=== PATIENT | female | born 1955 ===

== ENCOUNTER 2024-04-05 14:01 | Outpatient (REF) | payer SELFPAY | END 2024-04-05 14:02 | disposition home or self-care (01) | LOC: HO.HAP 14:01 | PROVIDERS: Visit Provider Family Medicine | DX: Z13.89 Encounter for screening for other disorder (principal) ==

== ENCOUNTER 2025-02-06 15:06 | Outpatient (REF) | payer SELFPAY ==
--- OUTSIDE RECORDS SUMMARY | 2025-02-06 15:09 | XMS_ITS | Continuity of Care Document ---
Author Organization [facility] Address [address] [place] [address] [address] [place], [place] Phone [phone] Care Team Providers Care Abalone Processor Name Role Phone Ama Mc MD Care Team Information Re ceiver Unavailable JEANNE DE SOUZA M.D. Care Team Information Rec eiver Unavailable Ama Mc MD Primary Care Physician U navailable Social History Type Date Description Comments Sex Unknown
--- OUTSIDE RECORDS SUMMARY | 2025-02-06 15:09 | XMS_ITS | Patient Health Record ---
Author Organization [facility] Address [address] [place] [address] Care Team Providers Care Switchboard Mechanic Name Role Phone Douglas Baron Primary Care Provider Reason For Referral No Information Plan Of Treatment No Information Insurance Providers Payer Name Payer Address Payer Phone Subscriber Number Group Number Insured Name Patient Relationship to Insured Coverage Start Date Coverage End Date [facility] P[facility]/[place] [employer] ADM [address] [place] [address] [phone] [id number] Kelly Scanlon Self - patient is the insured
--- OUTSIDE RECORDS SUMMARY | 2025-02-06 15:10 | XMS_ITS | Referral Summary ---
Author Organization [facility] Address [address] [place] [address] Care Team Providers Care Gallery Intern Name Role Phone Ama Mc Primary Care Provider [phone] Allergies Active Allergy Reactions Criticality Noted Date Comments Lisinopril Abdominal Pain 10/31/2023 Medications amLODIPine (NORVASC) 5 mg tablet Take 5 mg by mouth daily. Active vitamin D3 (VITAMIN D3) 1,000 unit capsule Take 1 capsule by mouth daily. Active aspirin 81 mg EC tablet 81 mg. 09/06/20 18 Active calcium carbonate (CALCIUM 500 ORAL) 500 mg 2 (two) times a day. Active prednisoLONE acetate (PRED FORTE) 1% ophthalmic suspension SMARTSI Drop(s) Right Eye Twice Daily Active brimonidine (ALPHAGAN) 0.2% ophthalmic solution SMARTSI Drop(s) In Eye(s) Twice Daily Active hydrocortisone (CORTEF) 5 mg tablet Take 2 tabs in AM, 1 tab in PM, triple both doses if sick 300 tablet 3 04/30/20 24 Active hydrocortisone sodium succinate (Solu-CORTEF) 100 mg/2 mL recon soln injection Inject 100 mg in muscle in case of emergency (severe illness, if you can not tolerate hydrocortisone tablets, due to vomiting and go to ER); take with you when traveling 2 mL 2 04/30/20 24 Active syringe with needle 3 mL 23 gauge x 1 1/2 syringe To use for emergency solu-cortef injection 4 each 3 04/30/20 24 Active levothyroxine (SYNTHROID, LEVOTHROID) 75 mcg tabletIndications: Hypopituitarism (HCC),Central hypothyroidism Take 1 tablet by mouth once daily 90 tablet 10/17/19 25 Active Active Problems Problem Noted Date Diagnosed Date Osteoarthritis of knee 10/31/2023 Osteoporosis 10/31/2023 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 Primary hypercholesterolemia 10/31/2023 Allergic rhinitis 10/31/2023 Colon cancer 10/31/2023 Adenomatous polyp of colon 10/07/2023 Overview (10/31/2023): Followed by Dr Chadwick GERD (gastroesophageal reflux disease) 0 Hyperlipemia 12/07/2019 Hypothyroid 12/07/2019 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 Hypertension 10/11/2018 Shortness of breath 10/11/2018 Atypical chest pain 09/15/2018 Diastolic dysfunction 06/28/2018 Sleep apnea 06/28/2018 Retinal tear 09/09/2017 Social History Tobacco Use Types Packs/Day Years Used Date Smoking Tobacco: Former Cigarettes 1 14 0 10/11/1969 - 10/11/1983 Smokeless Tobacco: Never Comments Unknown Sex and Gender Information Value Date Recorded Sex Assigned at Female 10/26/2023 3:41 PM EST Legal Sex Female 3:37 PM EDT Gender Identity Choose not to disclose 3:41 PM EST Sexual Orientation Choose not to disclose 2023 3:41 PM EST Last Filed Vital Signs Vital Sign Reading Time Taken Comments Blood Pressure 139/67 04/30/2024 9:03 AM EDT Pulse 51 04/30/2024 9:03 AM EDT Temperature 36.4 ??C (97.6 ??F) 10/31/2023 1:56 PM ES T Respiratory Rate 18 10/31/2023 1:56 PM EST Oxygen Saturation 100% 04/30/2024 9:03 AM EDT Inhaled Oxygen Concentration - - Weight 63.1 kg (139 lb 3.2 oz) 04/30/2024 9:03 A M EDT Height 147.3 cm (4' 10 ) 04/30/2024 9:03 AM EDT Body Mass Index 29.09 04/30/2024 9:03 AM EDT Plan of Treatment Not on file Procedures * Due to [place] state law, this organization might not be sharing negative HIV tests. Procedure Name Priority Date/Time Associated Diagnosis Comments DEXA AXIAL AND TBS Routine 07/27/2024 1: 58 PM EST Postmenopausal osteoporosis from Last 3 Months or Most Recently Relevant to Health Maintenance Results * Due to [place] [employer] law, this organization might not be sharing negative HIV tests. * DXA Axial and TBS (07/27/2024 1:58 PM EST) Anatomical Region Laterality Modality Bone Densitometr y 07/29/2024 8:01 PM EST Impressions 07/29/2024 8:01 PM EST This patient has osteoporosis. Consider bone health evaluation and management by Endocrinology or Rheumatology. Thank you for the courtesy of this referral. If this radiology report contains a blank impression section, it is an incomplete radiology report. ??Please contact the interpreting radiologist or applicable radiology division as soon as possible to obtain the completed interpretation. ? Workstation ID: [id number] Narrative 07/29/2024 8:01 PM EST EXAM: ??BONE MINERAL DENSITY PROCEDURE: ??The bone mineral density (BMD) of the spine and proximal left femur was determined using an external X-ray source([employer]). SITE: ??[facility] FINDINGS: L1-L4: ??BMD 0.67gm/cm2 ?? T-Score -3.4 ?Z-score: -1.3 Femoral neck: ??BMD 0.56-2.6gm/cm2 ?? T-Score -0.9 ?Z-score: Trabecular bone score (TBS) L1-L4: ??TBS 1.25 ? Z-score: -0.1 ?(normal microarchitecture: >1.31; degraded: <1.24) The World Health Organization (WHO) defines osteoporosis (as studied in post-menopausal women) as BMD with a T value of (-)2.5 or less at any site. ??Osteopenia is defined by a T value between (-)1.1 and (-)2.4. In general, it is recommended that patients receive approximately 1000 mg of calcium daily, either from dairy products or supplements (including multiple vitamin). Patients should consider supplementing with vitamin D. Vitamin D recommendations should be discussed with Health Care Provider and measurement of vitamin D levels should be considered. Careful weight-bearing exercise is also useful in maintaining bone mass and to help protect against falls. Resulting Agency Comment [id number] Procedure Note Kevan Cassidy MD - 07/29/2024 EXAM: BONE MINERAL DENSITY PROCEDURE: The bone mineral density (BMD) of the spine and proximal leftfemur was determined using an external X-ray source([employer]). SITE: [facility] FINDINGS: L1-L4: BMD 0.67gm/cm2 T-Score -3.4 Z-score: -1.3 Femoral neck: BMD 0.56-2.6gm/cm2 T-Score -0.9 Z-score: Trabecular bone score (TBS) L1-L4: TBS 1.25 Z-score: -0.1 (normal microarchitecture:>1.31; degraded: <1.24) The World Health Organization (WHO) defines osteoporosis (as studied inpost-menopausal women) as BMD with a T value of (-)2.5 or less at anysite. Osteopenia is defined by a T value between (-)1.1 and (-)2.4. In general, it is recommended that patients receive approximately 1000 mgof calcium daily, either from dairy products or supplements (includingmultiple vitamin). Patients should consider supplementing with vitamin D.Vitamin D recommendations should be discussed with Health Care Providerand measurement of vitamin D levels should be considered. Carefulweight-bearing exercise is also useful in maintaining bone mass and tohelp protect against falls. IMPRESSION: This patient has osteoporosis. Consider bone health evaluation and management by Endocrinology orRheumatology. Thank you for the courtesy of this referral. If this radiology report contains a blank impression section, it is anincomplete radiology report. Please contact the interpreting radiologistor applicable radiology division as soon as possible to obtain thecompleted interpretation. Workstation ID: [id number] us Gil Flynn MD IMG DXA PROCEDURES Final Result from Last 3 Months or Most Recently Relevant to Health Maintenance Insurance [employer] [place] [id number] Care Teams Gallery Intern Relationship Specialty Start Date End Date Ama Mc [facility] [address] [place] [id number] PCP - General Family Medicine 09/28/18
--- OUTSIDE RECORDS SUMMARY | 2025-02-06 15:10 | XMS_ITS | Clinical Summary ---
Author Organization [facility] Address [address] [place] [address] Care Team Providers Care Supercalender Operator Helper Name Role Phone Ama Mc Primary Care Provider [phone]- [phone] Allergies Active Allergy Reactions Criticality Noted Date [...] 04/30/2024 9:03 AM EDT Plan of Treatment Health Maintenance Due Date Last Done Comments Basic Metabolic Panel 1955 Cologuard 1955 Hepatitis C Screening 1955 COVID-19 Vaccine (#1) 12/04/1959 Zoster Vaccines (1 of 2) 1973 RSV Vaccine (60+ years old a nd patients) (1 - Risk 60-74 years 1-dose series) 2014 Pneumococcal Vaccine: 50+ Years (2 of 2 - PCV) 09/22/2016 09/22/2015 Alcohol/Substance Use Screening 09/19/2024 Depression Screening and Follow-Up 09/19/2024 Health Care Proxy Review 09/19/2024 Social Drivers of Health Annual Screening 09/19/2024 Mammogram 10/22/2024 10/22/2022 FOBT / Fit Test 10/31/2024 10/31/2023 Influenza Vaccine (Season Ended) 2025 10/03/2023, 07/08/2020, 08/24/2019 DTaP,Tdap,and Td Vaccines (2 - Td or Tdap) 09/22/2025 09/22/2015 Sigmoidoscopy 10/31/2028 10/31/2023 Colon Cancer Screening 07/05/2034 Colonoscopy 07/05/2034 07/05/2024, 07/05/2024, 07/22/2023 Osteoporosis Screening Completed 07/27/2024 Hepatitis B Vaccines Aged Out No long er eligible based on patient's age to complete this topic Procedures * Due to [place] [employer] law, this organization might not be sharing negative HIV tests. Procedure Name Priority Date/Time Associated Diagnosis Comments DEXA AXIAL AND TBS Routine 07/27/2024 1: 58 PM EST Postmenopausal osteoporosis from Last 3 Months or Most Recently Relevant to Health Maintenance Results * Due to [place] [employer] law, this organization might not be sharing [...] obtain the completed interpretation. ? Workstation ID: [id number] Narrative 07/29/2024 8:01 PM EST EXAM: ??BONE MINERAL DENSITY PROCEDURE: ??The bone mineral density (BMD) of the spine and proximal left femur was determined using an external X-ray source([employer]). SITE: ??[facility] FINDINGS: L1-L4: ??BMD 0.67gm/cm2 ?? T-Score -3.4 [...] help protect against falls. Resulting Agency Comment [id number] Procedure Note Kevan Cassidy MD - 07/29/2024 EXAM: BONE MINERAL DENSITY PROCEDURE: The bone mineral density (BMD) of the spine and proximal leftfemur was determined using an external X-ray source([employer]). SITE: [facility] FINDINGS: L1-L4: BMD 0.67gm/cm2 T-Score -3.4 Z-score: [...] possible to obtain thecompleted interpretation. Workstation ID: [id number] [facility] Rina RANGEL IMG DXA PROCEDURES Final Result from Last 3 Months or Most Recently Relevant to Health Maintenance Insurance [facility] [employer] [place] [id number] Care Teams Supercalender Operator Helper Relationship Specialty Start Date End Date Ama Mc [facility] [address] [place] [address] PCP - General Family Medicine 09/28/18
--- OUTSIDE RECORDS SUMMARY | 2025-02-06 15:10 | XMS_ITS | Encounter Summary ---
Author Organization [facility] Address [address] [place] [address] Care Team Providers Care Manager Scientific Name Role Phone Ama Mc Primary Care Provider [phone]- [phone] Encounter Details Date Type Department Care Team (Late st Contact Info) Description 11/02/2023 [facility] [place] Endocrinology [address] [place] [id number] Mink Rancher: Gil Zaidi MD [address] [place] [id number] [facility] [place] Social History Tobacco Use Types Packs/Day Years [...] not to disclose 2023 3:41 PM EST documented as of this encounter Plan of Treatment Not on file documented as of this encounter Visit Diagnoses Not on filedocumented in this encounter Care Teams Manager Scientific Relationship Specialty Start Date End Date Ama Mc [address] [address] PCP - General Family Medicine 09/28/18 documented as of this encounter
--- OUTSIDE RECORDS SUMMARY | 2025-02-06 15:10 | XMS_ITS | Clinical Summary ---
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 Allergies, Adverse Reactions, Alerts Allergy Name Reaction Description Start Date Severity Statu s Provider FLU VACCINE Severe Vidya CHRISTY Results No information available. Plan of Care Type Date Detail Pending order Urinalysis Patient education purpura Procedures Code Procedure Name Date Entry Date [facility]-[id number] Patient encounter procedure Vital Signs No information available. Immunizations No information available. Advance Directives No information available.
== END 2025-02-06 15:07 | disposition home or self-care (01) ==
LOC: HO.HAP 15:06
PROVIDERS: Visit Provider Family Medicine
DX: Z13.89 Encounter for screening for other disorder (principal)